=== PATIENT | female | born 1980 | race Caucasian/White ===

== ENCOUNTER 2018-04-10 09:57 | Emergency (ER) | payer OTHER, SELFPAY ==
[2018-04-10 10:00] VITALS: BP 140/99; PULSE 116; RESP 16; TEMP 35.7; O2SAT 99; BMI 37.0
--- NOTE | 2018-04-10 10:09 | ED.VISSUMM ---
- ER Visit Summary Date of Service: 04/10/18 Chief Complaint: Laceration right leg History of Present Illness: The patient is a 38 F who states she was getting into her vehicle. There is a Mug in the door. Apparently she brushed against a sharp edge and sustained a laceration to the right leg. She denies paresthesia, anesthesia or motor weakness. She is uncertain when she received her last tetanus shot. 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 Physical Examination: Vital signs are remarkable for blood pressure 140/99. Heart rate 116. She appears slightly anxious. HEENT is grossly unremarkable. Heart is regular. There is no respiratory distress. Examination of the right lower extremity reveals a 2.5 x 0.3 x 0.3 cm laceration anterior proximal right leg. DP and PT pulses are palpable. Gait was observed and normal. There is no evidence of infection. Test Results: None Emergency Department Course and Treatment: The wound was prepped draped in a sterile manner. The wound was anesthetized 1% lidocaine. The wound was irrigated with normal saline. Using 5-0 Ethilon horizontal mattress stitches were placed with good cosmesis hemostasis. Treatment Plan: Post suture wound care (clean wound with peroxide and Q-tip 3 times a day then apply bacitracin ointment). Sutures out in 7 days. Disposition: Discharged to home in stable improved condition Impression: 1. 2.5 cm laceration anterior right leg initial encounter 2. Sinus tachycardia 3. Elevated blood pressure asymptomatic and patient without hypertension This note was generated with [employer] dictation software. It may contain incorrect words, spelling, and punctuation that were not noted in review of the chart prior to signing ED Disposition - Plan for ED Patient: Disposition: Home or Assisted Living Chief Complaint: Laceration Instructions: ED Laceration Ext Sutr Stap Tape, ED Hypertension Poss Referrals: Jim Andrade, [Primary Care Provider] - 7 Days for suture removal Additional Instructions: Clean wound with peroxide and Q-tip 3 times a day then apply bacitracin ointment. Your blood pressure is elevated for age. You should have your blood pressure reassessed in 1-2 weeks.
[2018-04-10 10:45] VITALS: BP 130/102
--- NOTE | 2018-04-10 11:04 | ED.RN ---
pt instructed to f/u for BP. PT states she has a machine at home.
== END 2018-04-10 11:04 | disposition home or self-care (01) ==
PROVIDERS: Emergency Provider Emergency Medicine; Family Provider Student in an Organized Health Care Education/Training Program; PCP Student in an Organized Health Care Education/Training Program
DX: S81.811A Laceration without foreign body, right lower leg, initial encounter (principal); R00.0 Tachycardia, unspecified; R03.0 Elevated blood-pressure reading, without diagnosis of hypertension; W26.9XXA Contact with unspecified sharp object(s), initial encounter; Y93.89 Activity, other specified; Y92.89 Other specified places as the place of occurrence of the external cause; Y99.8 Other external cause status
CPT/HCPCS: 12001; 99284

== ENCOUNTER → 2018-11-10 | Outpatient (CLI) | payer OTHER, SELFPAY ==
[2018-11-09 08:58] VITALS: BMI 34.7
== END | disposition home or self-care (01) ==
LOC: PSN 11:05
PROVIDERS: Family Provider Student in an Organized Health Care Education/Training Program; PCP Student in an Organized Health Care Education/Training Program; Referring Provider Internal Medicine Cardiovascular Disease; Visit Provider Internal Medicine Cardiovascular Disease
DX: R03.0 Elevated blood-pressure reading, without diagnosis of hypertension (principal)
CPT/HCPCS: 93225; 93226

== ENCOUNTER → 2018-11-25 | Outpatient (CLI) | payer OTHER, SELFPAY ==
[2018-11-09 08:58] VITALS: BMI 34.7
--- NOTE | 2018-11-25 10:51 | ECHOD_ITS ---
Reason For Study: Murmur Procedure This was a 2D Doppler, Color Flow transthoracic echocardiogram. Exam performed in department. Left Ventricle Normal LV size. Left ventricular systolic function is normal. The estimated ejection fraction is 65 %. Normal diastology for age. No regional wall motion abnormalities noted. Right Ventricle Normal RV size. Normal systolic function. Atria Normal left atrium. Normal right atrium. Mitral Valve Normal mitral valve. Tricuspid Valve Normal tricuspid valve. Unable to estimate RV systolic pressure due to inadequate jet, pulmonary artery pressure probably normal. Aortic Valve Normal aortic valve. Trisinus/trileaflet aortic valve. Pulmonic Valve Normal pulmonic valve. Great Vessels Normal aortic root. The pulmonary artery is normal size. Normal inferior vena cava. Pericardium/Pleural No pericardial effusion. MMode/2D Measurements & Calculations LVIDd: 4.1 cm IVSd: 0.67 cm Ao root diam: 2.8 cm LVIDs: 2.2 cm LVPWd: 0.95 cm LA dimension: 3.0 cm RVDd: 3.6 cm FS: 46.4 % LAV(MOD-bp): 35.3 ml LA A4 area: 14.1 cm2 RA A4 area: 17.8 cm2 LAV(MOD-bp) Indexed: 19.0 ml/m2 LAV(MOD-sp2): 36.7 ml LAV(MOD-sp4): 32.2 ml Time Measurements MV dec time: 0.21 sec Doppler Measurements & Calculations MV A max perez: 85.7 cm/sec Lat Peak E' Perez: 16.3 cm/sec Med Peak E' Perez: 9.4 cm/sec MV V2 max: 78.8 cm/sec MV P1/2t max perez: 79.2 cm/sec Ao V2 max: 153.6 cm/sec MV max P.5 mmHg MV P1/2t: 51.4 msec Ao max P.4 mmHg MV V2 mean: 47.4 cm/sec MV dec slope: 451.2 cm/sec2 Ao V2 mean: 99.2 cm/sec MV mean P.1 mmHg MVA(P1/2t): 4.3 cm2 Ao mean P.6 mmHg MV V2 VTI: 22.7 cm Ao V2 VTI: 28.6 cm LV V1 max: 112.9 cm/sec PA V2 max: 83.7 cm/sec LV V1 max P.1 mmHg LV V1 mean P.3 mmHg LV V1 mean: 69.9 cm/sec LV V1 VTI: 20.6 cm Interpretation Summary Normal LV size. Left ventricular systolic function is normal. The estimated ejection fraction is 65 %. Normal diastology for age. Structurally normal valves. Ordering Physician: Roldan Ruiz Referring Physician: Roldan Ruiz Performed By: Valentín Crawford RCS
== END | disposition home or self-care (01) ==
LOC: CVS 10:50
PROVIDERS: Family Provider Student in an Organized Health Care Education/Training Program; PCP Student in an Organized Health Care Education/Training Program; Referring Provider Internal Medicine Cardiovascular Disease; Visit Provider Internal Medicine Cardiovascular Disease
DX: R01.1 Cardiac murmur, unspecified (principal); Z82.49 Family history of ischemic heart disease and other diseases of the circulatory system
CPT/HCPCS: 93306

== ENCOUNTER → 2019-02-13 | Outpatient (CLI) | payer OTHER, SELFPAY ==
[2018-12-21 10:49] VITALS: BMI 34.7
--- NOTE | 2019-02-13 12:37 | BI_ITS ---
MAMMOGRAPHY - BILATERAL SCREENING 3-D TOMOSYNTHESIS REASON FOR EXAM: Female, 39 years old. Bilateral Screening 3-D tomosynthesis PERTINENT HISTORY: Grandmother with breast cancer.. TECHNIQUE: 2-D mammograms and 3-D Tomosynthesis of the breast (s) were performed. CAD was performed. COMPARISON: None. FINDINGS: The breast composition is composed of scattered fibroglandular density. Scattered benign calcifications are seen. No dense spiculated masses or suspicious microcalcifications are identified. No architectural distortion is identified. There is no skin thickening or retraction. There has been no significant change since the prior study. BI/SCREEN MAMM (CAD) W/FOZIA BILAT IMPRESSION: No mammographic signs of malignancy. Routine yearly mammograms recommended. ASSESSMENT CATEGORY: BIRADS Category 1: Negative. A letter regarding these results will be sent to the patient by the facility within 30 days. FOLLOW UP RECOMMENDATION: Yearly follow up mammogram recommended. (A) Approximately 10% of breast cancers are not detected by mammography. A normal mammogram should not delay biopsy of a clinically suspicious abnormality. Electronically Signed: Gabriele Padron MD at 13:54 EDT , Service support ,
== END | disposition home or self-care (01) ==
LOC: OPBI 12:35
PROVIDERS: Family Provider Student in an Organized Health Care Education/Training Program; PCP Student in an Organized Health Care Education/Training Program; Referring Provider Obstetrics & Gynecology; Visit Provider Obstetrics & Gynecology
DX: Z12.31 Encounter for screening mammogram for malignant neoplasm of breast (principal)
CPT/HCPCS: 77063; 77067

== ENCOUNTER → 2019-02-15 | Outpatient (CLI) | payer OTHER, SELFPAY ==
[2018-12-21 10:49] VITALS: BMI 34.7
[2019-02-21 13:59] LABS: HPV Reflexed? NOT INDICATED
== END | disposition home or self-care (01) ==
PROVIDERS: Family Provider Student in an Organized Health Care Education/Training Program; PCP Student in an Organized Health Care Education/Training Program; Referring Provider Obstetrics & Gynecology; Visit Provider Obstetrics & Gynecology
DX: Z12.4 Encounter for screening for malignant neoplasm of cervix (principal)
CPT/HCPCS: 87624; 88175; G0145

== ENCOUNTER → 2020-04-24 | Outpatient (CLI) | payer OTHER, SELFPAY ==
[2018-12-21 10:49] VITALS: BMI 34.7
[2020-04-24 10:22] LABS: hCG Titer Quant., Serum 62 mIU/mL (1-3)
== END | disposition home or self-care (01) ==
LOC: WOBLAB 09:15
PROVIDERS: PCP Student in an Organized Health Care Education/Training Program; Visit Provider Obstetrics & Gynecology
DX: O09.521 Supervision of elderly multigravida, first trimester (principal); O20.0 Threatened abortion; Z3A.00 Weeks of gestation of pregnancy not specified
CPT/HCPCS: 36415; 84702

== ENCOUNTER 2020-04-25 04:25 | Emergency (ER) | payer OTHER, SELFPAY ==
[2018-12-21 10:49] VITALS: BMI 34.7
[2020-04-25 04:26] VITALS: PULSE 102; RESP 20; TEMP 36.1; O2SAT 98; BMI 35.9
[2020-04-25 04:29] VITALS: BP 143/101
--- NOTE | 2020-04-25 04:49 | ED.DCSUM_ITS ---
History of Present Illness Chief Complaint: Vag Bld, Preg Informant: Patient Narrative: Since stated she has had some spotting very mild pink for the last few days. She saw her RESEARCH FELLOW and had a quantitative yesterday that was a level of 62. She thought she was approximately 5 weeks and 2 days by dates. This number would put her closer to 2 weeks. Today she had some mild dull ache in her left adnexa which concerned her. She wanted to make sure she was not having a ruptured ectopic . Patient stated her blood type is O+. This is her fifth and she had 1 miscarriage and has 3 children. She also stated tonight she woke up and had some soreness in the left side of her neck is unsure if she slept on her neck wrong. No home treatment. Current severity is mild. She has a repeat quantitative hCG in 2 days. - Past Medical History (1) Elevated blood pressure reading without diagnosis of hypertension Status: Chronic (2) Family history of hypertrophic cardiomyopathy Status: Chronic (3) History of palpitations Status: Chronic Past Medical History - Allergies and Home Meds Allergies/Adverse Reactions: Allergies No Known Allergies Allergy (Verified 12/21/18 10:46) Primary Care Physician: Jim Andrade DO [Primary Care Provider] - Prior records reviewed: Yes Past Medical History: - - Reviewed Surgical History: - - Reviewed Lives: Spouse/ Significant Other Smoking Status: Never smoker Alcohol: None Drugs: None Review of Systems General: Denies: Chills, Fever, Sweats Eyes: Denies: Visual changes - bilaterally, Diplopia ENT: Denies: Rhinorrhea, Sore throat Cardiovascular: Denies: Chest pain, Palpitations Respiratory: Denies: Dyspnea, Cough, Dyspnea on exertion Gastrointestinal: Reports: Abdominal pain. Denies: Nausea, Vomiting, Diarrhea, Melena, Hematochezia Genitourinary: Denies: Dysuria, Hematuria, Frequency Musculoskeletal: Reports: Neck pain. Denies: Back pain, Extremity Pain Skin: Denies: Rash, Wounds Neurological: Denies: Headache, Weakness, Numbness Physical Exam Vital Signs/Narrative: Vital Signs Temp Pulse Resp BP Pulse Ox 04/25/20 04:29 143/101 H 04/25/20 04:26 97 F L 102 H 20 H 98 General: Well nourished, Well developed, No Acute Distress Head: Normocephalic, Atraumatic Eyes: Perrl, EOMI ENT: Moist mucous membranes, No rhinorrhea Neck: Supple, Nontender Cardiovascular: Regular rate, Regular rhythm, No murmurs Respiratory: No distress, CTA bilaterally, Chest nontender Abdomen: Soft, Nontender, Nondistended, Normal bowel sounds Back: Nontender, Normal Inspection Extremities: Nontender, No edema Skin: Normal color, No rash Neurological: Alert, Oriented x3, Cranial nerves II-XII grossly intact, Normal Strength, Normal Sensation Psychological: Normal affect, Normal Mood Diagnostic/Tx/Re-eval - Medical Decision Making Resting comfortably. I have a long discussion with her. At this time she has a quantitative I will be rechecked on Wednesday. I have a low suspicion for ectopic. She is very early in her . She does not want a pelvic exam at this time she does not want to disrupt anything . We will offer her an ultrasound but we decided to hold off as it will be very early. This could be a dominant follicular cyst. I do not think she has an ovarian torsion. All questions were answered. She like to hold off and see what her quantitative does on Wednesday. She understands she can return if she develops worsening pain or uncontrollable bleeding. I suspect she is has a neck strain on the left side. ED Disposition - Plan for ED Patient: Disposition: Home or Assisted Living Diagnosis: Adnexal pain, Neck muscle strain, Vaginal bleeding during Instructions: ED ECTOPIC RULE OUT Referrals: Remington Villa MD [STAFF PHYSICIAN] -
--- NOTE | 2020-04-25 05:08 | ED.RN ---
ALL QUESTIONS ANSWERED BY DR. DIAZ, NO FURTHER CONCERNS OR NEEDS.
== END 2020-04-25 05:09 | disposition home or self-care (01) ==
LOC: ED 05:01
PROVIDERS: Emergency Provider Emergency Medicine; PCP Student in an Organized Health Care Education/Training Program
DX: O20.9 Hemorrhage in early pregnancy, unspecified (principal); O26.899 Other specified pregnancy related conditions, unspecified trimester; R10.2 Pelvic and perineal pain; S16.1XXA Strain of muscle, fascia and tendon at neck level, initial encounter; Z3A.00 Weeks of gestation of pregnancy not specified; X58.XXXA Exposure to other specified factors, initial encounter; Y93.84 Activity, sleeping; Y92.003 Bedroom of unspecified non-institutional (private) residence as the place of occurrence of the external cause; Y99.8 Other external cause status
CPT/HCPCS: 99282

== ENCOUNTER → 2020-04-26 | Outpatient (CLI) | payer OTHER, SELFPAY ==
[2020-04-25 04:26] VITALS: BMI 35.9
[2020-04-26 09:59] LABS: hCG Titer Quant., Serum 49 mIU/mL (1-3)
== END | disposition home or self-care (01) ==
LOC: WOBLAB 09:07
PROVIDERS: PCP Student in an Organized Health Care Education/Training Program; Visit Provider Obstetrics & Gynecology
DX: O20.0 Threatened abortion (principal); O09.521 Supervision of elderly multigravida, first trimester; Z3A.00 Weeks of gestation of pregnancy not specified
CPT/HCPCS: 36415; 84702

== ENCOUNTER → 2020-04-29 | Outpatient (CLI) | payer OTHER, SELFPAY ==
[2020-04-25 04:26] VITALS: BMI 35.9
[2020-04-29 11:10] LABS: hCG Titer Quant., Serum 3 mIU/mL (1-3)
== END | disposition home or self-care (01) ==
LOC: WOBLAB 09:06
PROVIDERS: PCP Student in an Organized Health Care Education/Training Program; Visit Provider Obstetrics & Gynecology
DX: O20.0 Threatened abortion (principal); O09.521 Supervision of elderly multigravida, first trimester; Z3A.00 Weeks of gestation of pregnancy not specified
CPT/HCPCS: 36415; 84702

== ENCOUNTER → 2021-07-16 | Outpatient (CLI) | payer OTHER, SELFPAY ==
[2021-07-23 08:43] LABS: HPV Reflexed? NOT INDICATED
== END | disposition home or self-care (01) ==
LOC: LABSPEC 16:24
PROVIDERS: PCP Student in an Organized Health Care Education/Training Program; Visit Provider Obstetrics & Gynecology
DX: Z12.4 Encounter for screening for malignant neoplasm of cervix (principal)
CPT/HCPCS: 88175; G0145

== ENCOUNTER 2021-09-03 07:04 | Outpatient (CLI) | payer OTHER, SELFPAY ==
--- NOTE | 2021-09-02 16:53 | BI_ITS ---
MAMMOGRAPHY - BILATERAL SCREENING REASON FOR EXAM: Female, 41 years old. Routine annual screening examination. PERTINENT HISTORY: Grandmother with breast cancer. TECHNIQUE: Digital bilateral breast fozia (3D mammographic acquisition) in the CC and MLO projections. 2-D mediolateral oblique (MLO) and craniocaudad (CC) views of both breasts were obtained. CAD: Full Field Digital Mammography with Computer Added Detection was performed. COMPARISON: Comparison is made with prior study dated 02/13/2019. FINDINGS: Breast Composition: There are scattered areas of fibroglandular density. There are no dominant masses or suspicious calcifications. Stable small benign appearing bilateral axillary lymph nodes. No other significant abnormalities are identified. There has been no significant change since the prior study. BI/SCRN MAMM (CAD)W/FOZIA BILAT IMPRESSION: Stable bilateral screening mammogram. Yearly follow-up mammogram recommended. (A) ASSESSMENT CATEGORY: BIRADS Category 2: Benign. A letter regarding these results will be sent to the patient by the facility within 30 days. Approximately 10% of breast cancers are not detected by mammography. A normal mammogram should not delay biopsy of a clinically suspicious abnormality. [id number] Electronically Signed: Mack Yarbrough MD at 8:40 EST ,
== END 2021-09-03 23:59 | disposition home or self-care (01) ==
LOC: OPBI 07:09
PROVIDERS: PCP Student in an Organized Health Care Education/Training Program; Referring Provider Obstetrics & Gynecology; Visit Provider Obstetrics & Gynecology
DX: Z12.31 Encounter for screening mammogram for malignant neoplasm of breast (principal)
CPT/HCPCS: 77063; 77067

== ENCOUNTER → 2022-06-12 | Outpatient (CLI) | payer OTHER, SELFPAY | END | disposition home or self-care (01) | LOC: SL 19:57 | PROVIDERS: PCP Student in an Organized Health Care Education/Training Program; Visit Provider Nurse Practitioner Family | DX: G47.30 Sleep apnea, unspecified (principal); R03.0 Elevated blood-pressure reading, without diagnosis of hypertension | CPT/HCPCS: 95810 ==

== ENCOUNTER → 2022-09-16 | Outpatient (CLI) | payer OTHER, SELFPAY | END | disposition home or self-care (01) | PROVIDERS: PCP Student in an Organized Health Care Education/Training Program; Visit Provider Student in an Organized Health Care Education/Training Program | DX: G47.34 Idiopathic sleep related nonobstructive alveolar hypoventilation (principal) | CPT/HCPCS: 94762 ==